=== PATIENT | female | born 1985 | race Caucasian/White ===

== ENCOUNTER 2016-04-15 12:18 | Inpatient (IN) | payer BC, OTHER, SELFPAY ==
[~2016-04-15] VITALS: Ht 162.6 cm; Wt 61.0 kg
[~2016-04-15 12:18] MED LIST: PRENTAB8 PO; PRIMROSE OIL
[2016-04-15] MEDS ORDERED: PROTPAK PO (12:25)
[2016-04-15] MEDS ORDERED: PENICILLIN G POTASSIUM IV 5 MU in D5W MINI-BAG PLUS 100 ML IV STA (12:43)
[2016-04-15 12:46] VITALS: BP 123/83
[2016-04-15] MEDS ORDERED: PENICILLIN G POTASSIUM 5 MU VIAL As Ordered ONE (12:51)
[2016-04-15 13:10] LABS: MEAN CORPUSCULAR HEMOGLOBIN 32.1 pg (27.0-33.0); MEAN CORPUSCULAR HGB CONC 35.7 g/dl (32.0-36.5); MEAN CORPUSCULAR VOLUME 89.9 fl (80.0-96.0); RED CELL DISTRIBUTION WIDTH 13.7 % (11.5-14.5); WHITE BLOOD COUNT 9.6 K/mm3 (4.0-10.0)
[2016-04-15] MEDS ORDERED: OXYTOCIN 30 UNITS IN 0.9% NaCl 500ML IV BAG (J2590) As Ordered ONE (13:26)
--- NOTE | 2016-04-15 13:41 | HPE ---
DATE OF ADMISSION: 04/15/2016 Marivel is a 31-year-old, 8, para 5-0-2-5, at 39+ weeks gestation with an expected date of confinement (EDC) of 04/18/2016 based on last normal menstrual period and confirmed by a first trimester ultrasound. She presents to labor and delivery today with report of onset of uncomfortable contractions at approximately 10:30 a.m. She does report positive bloody show. Denies leakage of fluid and her fetus has been active. care was initiated at [facility] in the first trimester. course was complicated by positive GBS status. OBSTETRICAL HISTORY: In 1997, spontaneous miscarriage. In June 2000, at 41 weeks gestation, normal spontaneous vaginal delivery of an 8 pounds 8 ounces male. In April 2002, at 40-3/7 weeks gestation, normal spontaneous vaginal delivery of a 9 pounds 1 ounce female. In 2004, miscarriage. In May 2006, 41 weeks gestation, spontaneous vaginal delivery of an 8 pounds 12 ounces male. In December 2008, 37 weeks and 1 day gestation, spontaneous vaginal delivery of a 7 pounds 3 ounces female. In November 2011, at 40 weeks gestation, spontaneous vaginal delivery of an 8 pounds 6 ounces female. OB LABS: Blood type A+, antibody screen negative, rubella immune, VDRL nonreactive. Urine culture was contaminated with a repeat followup urine with no growth. Hepatitis B surface antigen negative, HIV negative. Hepatitis C antibody nonreactive. Gonorrhea and chlamydia negative. She did decline all genetic serum screening markers. Gestational diabetic screening 83. GBS positive. PAST MEDICAL HISTORY: Childhood asthma, no need for inhaler, outgrew as a young adult. Childhood varicella. SURGERIES: None. FAMILY HISTORY: Diabetes, hypertension, heart disease, autoimmune disease, varicose veins, mental retardation. SOCIAL HISTORY: The patient is . is at bedside and supportive. She is a nonsmoker. Denies alcohol or drug use. There is no history of sexually transmitted infections and no history of abuse - physical, sexual or emotional. CURRENT MEDICATIONS (include): - Protonix - vitamin ALLERGIES: No known drug allergies. OBJECTIVE: Temperature has not been recorded yet. Pulse 103. Blood pressure 123/83. She is alert and oriented, tensing with contractions. heart rate is 140, moderate variability, no accelerations noted at this time; however, she has only been on the monitor for about 5 minutes. Positive early decelerations noted. She is talia approximately every 2-3 minutes. Her sterile vaginal exam, 8 cm dilated, 100% effaced, -2 station, bulging bag of water, large amount of bloody show. Abdomen is gravid, cephalic presentation. Estimated weight approximately eight 8 pounds 4 ounces. ASSESSMENT: 1. Intrauterine at 39+ weeks gestation. 2. heart rate Category I. 3. Active labor. 4. Positive GBS. PLAN: Admit the patient to labor and delivery. Saline lock. Labs as ordered. Will start GBS antibiotics for GBS prophylaxis. Will hope for treatment; however, with patient's history of quick labor, it is unlikely the patient will be treated in time. I do anticipate a spontaneous vaginal delivery shortly.
[2016-04-15 13:49] VITALS: BP 135/71
[2016-04-15] MEDS ORDERED: OXYTOCIN DRIP 30 UNITS in APPROPRIATE DILUENT 1 EA IV SCH (13:57)
[2016-04-15] MEDS ORDERED: DOCUSATE SODIUM 100 MG CAP PO PRN (14:00)
[2016-04-15] MEDS ORDERED: METHYLERGONOVINE MALEATE 0.2 MG TAB PO PRN (14:00)
[2016-04-15] MEDS ORDERED: RHOGAM 300 MCG (1500 IU) INJ (J2790) IM SCH (14:00)
[2016-04-15] MEDS ORDERED: DIBUCAINE 1% OINTMENT 30GM TOP PRN (14:00)
[2016-04-15] MEDS ORDERED: PERCOCET 5MG/325MG TAB PO PRN (14:00)
[2016-04-15] MEDS ORDERED: MEASLES,MUMPS,RUBELLA VACCINE INJ (MMR-II) (90707) SC SCH (14:00)
[2016-04-15 14:04] VITALS: BP 131/69
[2016-04-15] MEDS: IBUPROFEN 800 MG TAB PO PRN ×2 (14:33→21:59)
[2016-04-15] MEDS ORDERED: PENICILLIN G POTASSIUM IV 2.5 MU in D5W 100 ML IV SCH (17:00)
--- NOTE | 2016-04-15 17:27 | DN ---
DATE: 04/15/2016 DATE OF : 1985. Marivel is 31-year-old 8, para 6-0-2-6 now is admitted to labor and delivery in active labor. She progressed to full dilation at 13:38. She pushed to a spontaneous vaginal delivery of a live female in face presentation, mentum anterior and restituted to left occiput transverse (LOT) position. There was a nuchal cord loose times one that was reduced manually. The shoulders delivered spontaneously and the corpus immediately followed. The was placed on maternal abdomen, crying and active. Mouth and nares were bulb suctioned. Cord was clamped times two and cut by the patient's daughter. Cord blood was obtained. Spontaneous expulsion of an intact placenta with three-vessel cord by Valdivia mechanism was at 13:44. Uterine hemostasis achieved with uterine fundal massage and IV Pitocin rapid infusion and estimated blood loss 300 mL. Perineum and vagina were inspected and noted to be intact. female weight 7 pounds 1 ounce, 3198 grams, score 9 and 10. Infant's name is pending at this time. At the close of delivery, lap counts and instrument counts were correct and verified.
[2016-04-15 18:00] VITALS: BP 109/63
[2016-04-16] MEDS: IBUPROFEN 800 MG TAB PO PRN ×2 (05:12→17:02)
[2016-04-16 05:22] VITALS: BP 113/60
[2016-04-16] MEDS: PRENATAL VITAMIN TAB PO SCH (08:31)
[2016-04-16] MEDS: PERCOCET 5MG/325MG TAB PO PRN ×2 (14:00→21:02)
[2016-04-16 18:17] VITALS: BP 116/61
[2016-04-17 05:43] VITALS: BP 119/69
[2016-04-17] MEDS: PRENATAL VITAMIN TAB PO SCH (09:00)
[2016-04-17] MEDS ORDERED: PRENTAB9 PO (09:27)
[2016-04-17] MEDS ORDERED: IBUP-1114 PO (09:27)
== END 2016-04-17 10:40 | disposition home or self-care (01) | DRG 560 ==
LOC: M LDO 12:18 → M LDI 12:22 → M OBS 16:14
PROVIDERS: ADMIT Advanced Practice Midwife; ATTEND Advanced Practice Midwife
PROC: 10E0XZZ Delivery of Products of Conception, External Approach (ICD-10-PCS; principal; 2016-04-15)
DX: O69.82X0 Labor and delivery complicated by other cord entanglement, without compression, not applicable or unspecified (principal); O99.820 Streptococcus B carrier state complicating pregnancy; Z37.0 Single live birth; Z3A.39 39 weeks gestation of pregnancy

== ENCOUNTER → 2018-09-18 | Outpatient (REF) | payer OTHER ==
[~2018-09-18] MED LIST changes: +IBUP-1114 PO; +PRENTAB9 PO; +PROTPAK PO
== END ==
LOC: M LAB REF 12:47
PROVIDERS: ATTEND Physician Assistant
DX: N39.0 Urinary tract infection, site not specified (principal)

== ENCOUNTER 2019-03-06 19:15 | Emergency (ER) | payer OTHER ==
[~2019-03-06] VITALS: Ht 162.6 cm; Wt 59.1 kg
[2019-03-06 19:15] VITALS: BP 158/89
--- NOTE | 2019-03-06 21:20 | REP ---
Clinical: Trauma. Technique: AP, lateral views of the left forearm. Findings: The osseous structures and joint spaces are intact and normal. There is no evidence for acute fracture or dislocation. Surrounding soft tissues are unremarkable. No subcutaneous emphysema or radiodense foreign body. Impression: No acute fracture or dislocation. Electronically Signed by Eric Devlin MD 03/06/2019 09:11 P
== END 2019-03-06 21:12 | disposition home or self-care (01) ==
LOC: M ED 19:15
DX: S50.12XA Contusion of left forearm, initial encounter (principal); W10.9XXA Fall (on) (from) unspecified stairs and steps, initial encounter; Y92.009 Unspecified place in unspecified non-institutional (private) residence as the place of occurrence of the external cause; Y93.K1 Activity, walking an animal; Y99.8 Other external cause status

== ENCOUNTER → 2019-05-13 | Outpatient (REF) | payer OTHER | LOC: M LAB REF 13:41 | PROVIDERS: ATTEND Nurse Practitioner Family | DX: N39.0 Urinary tract infection, site not specified (principal) ==

== ENCOUNTER → 2019-11-20 | Outpatient (REF) | payer OTHER | LOC: M LAB REF 13:23 | PROVIDERS: ATTEND Advanced Practice Midwife | DX: R30.0 Dysuria (principal) ==

== ENCOUNTER → 2020-09-04 | Outpatient (REF) | LOC: M LABSMTC 10:25 | PROVIDERS: ATTEND Pediatrics | DX: Z11.52 Encounter for screening for COVID-19 (principal) ==

== ENCOUNTER 2021-03-06 08:05 | Outpatient (RCR) | END 2021-03-06 15:00 | disposition home or self-care (01) | LOC: M EMP 08:05 | PROVIDERS: ATTEND Pediatrics | DX: Z11.52 Encounter for screening for COVID-19 (principal) ==

== ENCOUNTER → 2022-01-13 | Day surgery (SDC) | payer BC, OTHER ==
[~2022-01-13] VITALS: Ht 162.6 cm; Wt 56.8 kg
[~2022-01-13] MED LIST changes: +ACET-897 PO; +ACETAMINOPHEN 1000MG 100ML IV BTL (OFIRMEV) (J0131 PER 10MG) As Ordered ONE; +ACETAMINOPHEN TAB 650MG DOSE (2X325MG) PO PRN; +BUPIVACAINE/EPIN 0.25% 30 ML VIAL As Ordered ONE; +HOME MED LIST COMPLETE! XX SCH; +HYDROMORPHONE HCL 0.5 MG/ 0.5 ML SYRINGE (J1170 PER 1) IV PRN; +IBUP-1720 PO; +ISOVUE-370 76% 100ML VIAL As Ordered ONE; +KETOROLAC 30 MG/ML 1ML VIAL IV ONE; +KETOROLAC 60MG 2ML VIAL As Ordered ONE; +LIDOCAINE 2% 100MG/5ML SDV (FOR ANES.) As Ordered ONE; +LR 1,000 ML IV SCH; +METOCLOPRAMIDE INJ 10MG/2ML VIAL (J2765 PER 1) IV ONE; +MIDAZOLAM INJ 2MG/2ML VIAL (J2250 PER 1MG) As Ordered ONE; +MORPHINE 4 MG/ML 1ML VIAL/SYRINGE IV ONE; +NORCO, ANEXSIA 5/325MG TABLET (HYDROcodone/ACETAMINOPHEN) PO PRN; +NS 1,000 ML IV ONE; +NS 1,000 ML IV SCH; +ONDANSETRON 4MG 2ML VIAL As Ordered ONE; +ONDANSETRON 4MG 2ML VIAL IV PRN; +PHENYLephrine 500MCG 5ML (100MCG/ML) SYRINGE As Ordered ONE; +PIPERACILLIN/TAZOBACTAM SOD 3.375 GM in D5W MINI-BAG PLUS 50 ML IV ONE; +PIPERACILLIN/TAZOBACTAM SOD 3.375 GM in D5W MINI-BAG PLUS 50 ML IV SCH; +ROCURONIUM BROMIDE 50 MG/5 ML VIAL As Ordered ONE; +SENOKOT S TAB PO SCH; +SUCCINYLCHOLINE 100 MG/5 ML SYRINGE (J0330) As Ordered ONE; +SUGAMMADEX SODIUM 500 MG/5 ML VIAL (BRIDION) As Ordered ONE; +dexameTHASONE 4 MG/ML 1ML VIAL (J1100 PER 1MG) As Ordered ONE; +fentaNYL 100 MCG/2 ML INJECTION As Ordered ONE; +fentaNYL 100 MCG/2 ML INJECTION IV PRN; +oxyCODONE 5MG TAB PO PRN; +propofoL 200 MG/20 ML VIAL As Ordered ONE
[2022-01-13 08:19] LABS: BASO % 0.4 % (0.0-1.0); EOS % 0.6 % (0.0-3.0); HEMATOCRIT 35.2 % (36.0-47.0); HEMOGLOBIN 11.1 g/dl (12.0-15.5); LYMPH # 0.3 10^3/uL (1.5-5.0); LYMPH % 4.3 % (24.0-44.0); MEAN CORPUSCULAR HEMOGLOBIN 26.6 pg (27.0-33.0); MEAN CORPUSCULAR HGB CONC 31.5 g/dl (32.0-36.5); MEAN CORPUSCULAR VOLUME 84.4 fl (80.0-96.0); MONO # 0.6 10^3/uL (0.0-0.8); MONO % 9.1 % (2.0-8.0); NEUTROPHILS # 5.7 10^3/uL (1.5-8.5); NEUTROPHILS % 85.2 % (36.0-66.0); PLATELET COUNT, AUTOMATED 208 10^3/uL (150-450); RED BLOOD COUNT 4.17 10^6/uL (4.00-5.40); WHITE BLOOD COUNT 6.7 10^3/uL (4.0-10.0)
[2022-01-13 08:47] LABS: ALBUMIN 3.6 GM/DL (3.2-5.2); ALT/SGPT 19 U/L (12-78); BILIRUBIN,DIRECT 0.3 MG/DL (0.0-0.2); BILIRUBIN,TOTAL 0.7 MG/DL (0.2-1.0); LIPASE 55 U/L (73-393); TOTAL PROTEIN 6.8 GM/DL (6.4-8.2)
[2022-01-13 09:05] LABS: HCG, SERUM QUANTITATIVE < 1.0 MIU/ML
[2022-01-13 14:10] VITALS: BP 92/54
== END | disposition home or self-care (01) ==
LOC: M ED 06:43 → M SDC 06:44
PROVIDERS: ATTEND Surgery
DX: K35.890 Other acute appendicitis without perforation or gangrene (principal)
CPT/HCPCS: 44970; 74177; 76801; 76817; 80047; 80076; 83690; 84702; 85025; 87635; 88304; 93976; 96365; 96375; 99284; J0131; J0330; J1100; J1885; J2250; J2270; J2370; J2405; J2543; J2765; J3010; Q9967

== ENCOUNTER → 2023-10-29 | Outpatient (REF) | payer BC ==
[~2023-10-29] MED LIST changes: -ACETAMINOPHEN 1000MG 100ML IV BTL (OFIRMEV) (J0131 PER 10MG) As Ordered ONE; -ACETAMINOPHEN TAB 650MG DOSE (2X325MG) PO PRN; -BUPIVACAINE/EPIN 0.25% 30 ML VIAL As Ordered ONE; -HOME MED LIST COMPLETE! XX SCH; -HYDROMORPHONE HCL 0.5 MG/ 0.5 ML SYRINGE (J1170 PER 1) IV PRN; -ISOVUE-370 76% 100ML VIAL As Ordered ONE; -KETOROLAC 30 MG/ML 1ML VIAL IV ONE; -KETOROLAC 60MG 2ML VIAL As Ordered ONE; -LIDOCAINE 2% 100MG/5ML SDV (FOR ANES.) As Ordered ONE; -LR 1,000 ML IV SCH; -METOCLOPRAMIDE INJ 10MG/2ML VIAL (J2765 PER 1) IV ONE; -MIDAZOLAM INJ 2MG/2ML VIAL (J2250 PER 1MG) As Ordered ONE; -MORPHINE 4 MG/ML 1ML VIAL/SYRINGE IV ONE; -NORCO, ANEXSIA 5/325MG TABLET (HYDROcodone/ACETAMINOPHEN) PO PRN; -NS 1,000 ML IV ONE; -NS 1,000 ML IV SCH; -ONDANSETRON 4MG 2ML VIAL As Ordered ONE; -ONDANSETRON 4MG 2ML VIAL IV PRN; -PHENYLephrine 500MCG 5ML (100MCG/ML) SYRINGE As Ordered ONE; -PIPERACILLIN/TAZOBACTAM SOD 3.375 GM in D5W MINI-BAG PLUS 50 ML IV ONE; -PIPERACILLIN/TAZOBACTAM SOD 3.375 GM in D5W MINI-BAG PLUS 50 ML IV SCH; -ROCURONIUM BROMIDE 50 MG/5 ML VIAL As Ordered ONE; -SENOKOT S TAB PO SCH; -SUCCINYLCHOLINE 100 MG/5 ML SYRINGE (J0330) As Ordered ONE; -SUGAMMADEX SODIUM 500 MG/5 ML VIAL (BRIDION) As Ordered ONE; -dexameTHASONE 4 MG/ML 1ML VIAL (J1100 PER 1MG) As Ordered ONE; -fentaNYL 100 MCG/2 ML INJECTION As Ordered ONE; -fentaNYL 100 MCG/2 ML INJECTION IV PRN; -oxyCODONE 5MG TAB PO PRN; -propofoL 200 MG/20 ML VIAL As Ordered ONE
[2023-10-31 14:47] LABS: HPV APTIMA Not Detected (Not Detected)
== END ==
LOC: M PLALAB 09:23
PROVIDERS: ATTEND Advanced Practice Midwife
DX: Z12.4 Encounter for screening for malignant neoplasm of cervix (principal)